=== PATIENT | male | born 1955 | race Caucasian/White ===

== ENCOUNTER 2018-06-30 16:41 | Inpatient (IN) | payer MEDICAID ==
[~2018-06-30] VITALS: Ht 175.3 cm; Wt 86.0 kg
[2018-06-30 16:47] VITALS: Ht 175.3 cm; Wt 86.0 kg
[2018-06-30 17:33] LABS: BASOPHIL % 0.6 % (0-2); PLATELET COUNT 343 x10^3mcL (130-400); RED CELL DISTRIBUTION WIDTH 12.9 % (11.5-14.5)
[2018-06-30 17:42] LABS: CALCIUM 8.9 mg/dL (8.5-10.1); CARBON DIOXIDE 27.5 mmol/L (21-32); CHLORIDE SERUM 99 mmol/L (98-107); CREATININE SERUM 1.2 mg/dL (0.7-1.3); GFR1 > 60 mL/min; GLUCOSE SERUM 106 mg/dL (74-106); POTASSIUM SERUM 3.1 mmol/L (3.5-5.1); SODIUM SERUM 139 mmol/L (136-145)
[2018-06-30 17:57] LABS: ALBUMIN 4.4 g/dL (3.4-5.0); ALKALINE PHOSPHATASE 81 U/L (46-116); ALT/SGPT 60 U/L (16-63); AST/SGOT 158 U/L (15-37); BILIRUBIN TOTAL 1.29 mg/dL (0.20-1.00); PHOSPHOROUS 1.5 mg/dL (2.5-4.9); TOTAL PROTEIN, SERUM 7.9 g/dL (6.4-8.2); TRIGLYCERIDES 73 mg/dL (<150)
[2018-06-30 17:58] LABS: CHOLESTEROL 202 mg/dL (<200); CHOLESTEROL/HDL RATIO 2.8; HDL CHOLESTEROL 72 mg/dL (40-60)
[2018-06-30 20:21] LABS: AMYLASE 73 U/L (25-115); LIPASE 168 IU/L (73-393)
[2018-06-30 20:34] LABS: T3 TOTAL 1.17 ng/mL
[2018-06-30 20:51] LABS: FREE T4 1.28 ng/dL (0.76-1.46); FREE THYROXINE INDEX 3.7 ug/dL (1.4-4.5)
[2018-06-30 21:44] VITALS: BP 139/98
[2018-06-30] MEDS ORDERED: KEPPRA1000 M1 PO (22:13)
[2018-06-30 23:47] LABS: UA SPECIFIC GRAVITY 1.025 (1.005-1.035); microscopic required? YES; urine erythrocyte 2+ (NEGATIVE)
[2018-06-30 23:55] LABS: AMPHETAMINE QUAL UR POSITIVE (See below)
[2018-07-01 06:10] VITALS: BP 143/87
[2018-07-01 07:33] LABS: BASOPHIL % 0.2 % (0-2); PLATELET COUNT 282 x10^3mcL (130-400); RED CELL DISTRIBUTION WIDTH 13.4 % (11.5-14.5)
[2018-07-01 07:36] LABS: ALBUMIN 3.5 g/dL (3.4-5.0); ALKALINE PHOSPHATASE 62 U/L (46-116); ALT/SGPT 50 U/L (16-63); AST/SGOT 122 U/L (15-37); BILIRUBIN TOTAL 1.35 mg/dL (0.20-1.00); CALCIUM 7.9 mg/dL (8.5-10.1); CARBON DIOXIDE 23.6 mmol/L (21-32); CHLORIDE SERUM 101 mmol/L (98-107); CREATININE SERUM 0.9 mg/dL (0.7-1.3); GFR1 > 60 mL/min; GLUCOSE SERUM 100 mg/dL (74-106); MAGNESIUM 1.9 mg/dL (1.8-2.4); PHOSPHOROUS 2.1 mg/dL (2.5-4.9); SODIUM SERUM 139 mmol/L (136-145); TOTAL PROTEIN, SERUM 6.6 g/dL (6.4-8.2)
[2018-07-01 07:43] LABS: POTASSIUM SERUM 2.8 mmol/L (3.5-5.1)
[2018-07-01 08:32] VITALS: BP 149/89
[2018-07-01 10:05] VITALS: BP 149/89
[2018-07-01 16:20] VITALS: BP 150/90
[2018-07-01 20:24] VITALS: BP 148/94
[2018-07-02 06:02] VITALS: BP 154/99
[2018-07-02 06:25] LABS: CARBON DIOXIDE 28.4 mmol/L (21-32); CHLORIDE SERUM 101 mmol/L (98-107); CREATININE SERUM 0.9 mg/dL (0.7-1.3); GFR1 > 60 mL/min; GLUCOSE SERUM 104 mg/dL (74-106); MAGNESIUM 1.7 mg/dL (1.8-2.4); PHOSPHOROUS 1.8 mg/dL (2.5-4.9); POTASSIUM SERUM 3.2 mmol/L (3.5-5.1); SODIUM SERUM 138 mmol/L (136-145)
[2018-07-02 06:37] LABS: BASOPHIL % 0.3 % (0-2); PLATELET COUNT 299 x10^3mcL (130-400); RED CELL DISTRIBUTION WIDTH 13.1 % (11.5-14.5)
[2018-07-02 10:04] VITALS: BP 170/114
[2018-07-02 12:31] VITALS: BP 126/79
[2018-07-02 16:21] VITALS: BP 144/95
[2018-07-02 21:00] VITALS: BP 147/91
[2018-07-03 05:39] VITALS: BP 138/93
[2018-07-03 06:26] LABS: BASOPHIL % 0.4 % (0-2); PLATELET COUNT 310 x10^3mcL (130-400); RED CELL DISTRIBUTION WIDTH 12.9 % (11.5-14.5)
[2018-07-03 06:54] LABS: CALCIUM 8.9 mg/dL (8.5-10.1); CHLORIDE SERUM 103 mmol/L (98-107); CREATININE SERUM 1.1 mg/dL (0.7-1.3); GFR1 > 60 mL/min; GLUCOSE SERUM 101 mg/dL (74-106); MAGNESIUM 1.8 mg/dL (1.8-2.4); PHOSPHOROUS 2.8 mg/dL (2.5-4.9); POTASSIUM SERUM 3.9 mmol/L (3.5-5.1); SODIUM SERUM 140 mmol/L (136-145)
[2018-07-03 08:34] VITALS: BP 141/99
[2018-07-03 11:30] LABS: microscopic required? YES; urine erythrocyte TRACE (NEGATIVE)
[2018-07-03 13:04] VITALS: BP 155/92
[2018-07-03 17:42] VITALS: BP 140/95
[2018-07-03 20:29] VITALS: BP 139/91
[2018-07-04 06:05] LABS: BASOPHIL % 0.4 % (0-2); PLATELET COUNT 326 x10^3mcL (130-400); RED CELL DISTRIBUTION WIDTH 13.5 % (11.5-14.5)
[2018-07-04 06:17] VITALS: BP 149/93
[2018-07-04 06:47] LABS: CALCIUM 8.6 mg/dL (8.5-10.1); CARBON DIOXIDE 27.4 mmol/L (21-32); CHLORIDE SERUM 102 mmol/L (98-107); CREATININE SERUM 1.1 mg/dL (0.7-1.3); GFR1 > 60 mL/min; GLUCOSE SERUM 97 mg/dL (74-106); POTASSIUM SERUM 3.7 mmol/L (3.5-5.1); SODIUM SERUM 136 mmol/L (136-145)
[2018-07-04 08:35] LABS: microscopic required? NO
[2018-07-04 12:30] VITALS: BP 141/93
[2018-07-04 13:15] LABS: UA SPECIFIC GRAVITY 1.015 (1.005-1.035); urine erythrocyte NEGATIVE (NEGATIVE)
[2018-07-04 19:51] VITALS: BP 140/93
[2018-07-05 05:46] VITALS: BP 128/85
[2018-07-05 06:00] LABS: BASOPHIL % 0.4 % (0-2); PLATELET COUNT 363 x10^3mcL (130-400); RED CELL DISTRIBUTION WIDTH 13.3 % (11.5-14.5)
[2018-07-05 06:22] LABS: CARBON DIOXIDE 29.6 mmol/L (21-32); CHLORIDE SERUM 101 mmol/L (98-107); GFR1 > 60 mL/min; GLUCOSE SERUM 97 mg/dL (74-106); POTASSIUM SERUM 5.1 mmol/L (3.5-5.1); SODIUM SERUM 138 mmol/L (136-145)
[2018-07-05 08:21] VITALS: BP 146/104
[2018-07-05 12:00] VITALS: BP 142/95
[2018-07-05 16:58] VITALS: BP 140/98
[2018-07-05 20:01] VITALS: BP 130/91
[2018-07-06 05:07] VITALS: BP 127/77
[2018-07-06 07:07] LABS: CALCIUM 9.4 mg/dL (8.5-10.1); CARBON DIOXIDE 30.5 mmol/L (21-32); CHLORIDE SERUM 100 mmol/L (98-107); CREATININE SERUM 1.2 mg/dL (0.7-1.3); GFR1 > 60 mL/min; GLUCOSE SERUM 92 mg/dL (74-106); MAGNESIUM 1.8 mg/dL (1.8-2.4); PHOSPHOROUS 3.3 mg/dL (2.5-4.9); POTASSIUM SERUM 5.2 mmol/L (3.5-5.1); SODIUM SERUM 136 mmol/L (136-145)
[2018-07-06 07:12] LABS: BASOPHIL % 0.5 % (0-2); RED CELL DISTRIBUTION WIDTH 12.5 % (11.5-14.5)
[2018-07-06 07:30] LABS: PLATELET COUNT 417 x10^3mcL (130-400)
[2018-07-06 08:42] VITALS: BP 142/96
[2018-07-06 15:40] VITALS: BP 142/102
== END 2018-07-06 19:36 | disposition home or self-care (01) | DRG 351 ==
LOC: ED 16:41 → DU 19:54
PROVIDERS: Emergency Medicine; General Practice; Internal Medicine
DX: M62.82 Rhabdomyolysis (principal); N17.0 Acute kidney failure with tubular necrosis; G92 Toxic encephalopathy; F15.10 Other stimulant abuse, uncomplicated; T43.621A Poisoning by amphetamines, accidental (unintentional), initial encounter; F12.10 Cannabis abuse, uncomplicated; E83.39 Other disorders of phosphorus metabolism; E83.42 Hypomagnesemia; E83.51 Hypocalcemia; R80.9 Proteinuria, unspecified; I16.0 Hypertensive urgency; E87.6 Hypokalemia; Z68.25 Body mass index [BMI] 25.0-25.9, adult; Y92.018 Other place in single-family (private) house as the place of occurrence of the external cause; Z86.73 Personal history of transient ischemic attack (TIA), and cerebral infarction without residual deficits
CPT/HCPCS: 83880; 84439; 97110-GP; 97116-GP; 97530-GP; 99406; G0480; J1630; J1953; J3480; J3486; J7030; Q0092